=== PATIENT | female | born 1995 | race African-American/Black ===

== ENCOUNTER 2017-06-08 10:34 | Emergency (ER) | payer BC, MEDICAID, OTHER ==
[2017-06-08 10:44] VITALS: BP 122/71
--- NOTE | 2017-06-08 11:39 | ER Document Report ---
ED Extremity Problem, Lower - General Chief Complaint: Leg Swelling Stated Complaint: LEG SWELLING RAPID HEART RATE Time Seen by Provider: 06/08/17 10:56 Mode of Arrival: Ambulatory Information source: Patient Notes: 22-year-old female presents to ED for complaint of arms and leg swelling 2 weeks. She states she has knee pain in the fast heartbeat. Her heartbeat was normal during her stay in the emergency room. She states that she was losing a lot of weight and her legs were very swollen before her loss of weight and they were slowly getting better. She states over the last 2 weeks her legs started swelling again but she is continuing to lose weight. She states she has a appointment with a neurologist for some shaking in her head. She states she has another appointment with her primary doctor concerning her swelling in her leg also. TRAVEL OUTSIDE OF THE [place] IN LAST 30 DAYS: No - HPI Patient complains to provider of: Swelling Location: Leg, Thigh Occurred: Other - Intermittently over the last 2 weeks decreases when she has her legs elevated down when she is walking Onset/Duration: Intermittent Quality of pain: Pressure Severity: Mild Pain Level: 2 Recent injury: No Associated symptoms: Rapid heart rate Exacerbated by: Hanging down - States at times she feels like she has a fast heartbeat there is no fast heartbeat at this time, Walking Relieved by: Elevation - Related Data Allergies/Adverse Reactions: No Known Allergies Allergy (Verified 06/08/17 10:41) Past Medical History - General Information source: Patient - Social History Smoking Status: Never Smoker Cigarette use (# per day): No Chew tobacco use (# tins/day): No Smoking Education Provided: No Frequency of alcohol use: None Drug Abuse: None Lives with: Family Family History: Reviewed & Not Pertinent Patient has suicidal ideation: No Patient has homicidal ideation: No - Past Medical History Cardiac Medical History: Reports: None Pulmonary Medical History: Reports: Hx Asthma, Hx Bronchitis EENT Medical History: Reports: None Neurological Medical History: Reports: None Endocrine Medical History: Reports: None Renal/ Medical History: Reports: None Malignancy Medical History: Reports: None GI Medical History: Reports: None Musculoskeltal Medical History: Reports None Psychiatric Medical History: Reports: Hx Bipolar Disorder, Hx Depression, Hx Schizophrenia Traumatic Medical History: Reports: None Infectious Medical History: Reports: None Surgical Hx: Negative Past Surgical History: Reports: None - Immunizations Immunizations up to date: Yes Hx Diphtheria, Pertussis, Tetanus Vaccination: No Review of Systems - Review of Systems Constitutional: No symptoms reported EENT: No symptoms reported Cardiovascular: Edema - Lower legs Respiratory: No symptoms reported Gastrointestinal: No symptoms reported Genitourinary: No symptoms reported Female Genitourinary: No symptoms reported Musculoskeletal: No symptoms reported, Leg swelling Skin: No symptoms reported Hematologic/Lymphatic: No symptoms reported Neurological/Psychological: No symptoms reported -: Yes All other systems reviewed and negative Physical Exam - Vital signs Vitals: Temp Pulse Resp BP Pulse Ox 99.1 F 73 16 122/71 99 06/08/17 10:42 06/08/17 10:42 06/08/17 10:42 06/08/17 10:42 06/08/17 10:42 Interpretation: Normal - General General appearance: Appears well, Alert - HEENT Head: Normocephalic, Atraumatic Eyes: Normal Pupils: PERRL - Respiratory Respiratory status: No respiratory distress Chest status: Nontender Breath sounds: Normal Chest palpation: Normal - Cardiovascular Rhythm: Regular Heart sounds: Normal auscultation Murmur: No - Abdominal Inspection: Normal Distension: No distension Bowel sounds: Normal Tenderness: Nontender Organomegaly: No organomegaly - Back Back: Normal, Nontender - Extremities General upper extremity: Normal inspection, Nontender, Normal color, Normal ROM , Normal temperature General lower extremity: Normal inspection, Nontender, Normal color, Normal ROM , Normal temperature, Normal weight bearing. No: Ashley's sign Hand: Normal, Nontender Calf: Other - Minimal edema Ankle: Edema - Minimal Foot: Normal - Minimal - Neurological Neuro grossly intact: Yes Cognition: Normal Orientation: AAOx4 [place] Coma Scale Eye Opening: Spontaneous [place] Coma Scale Verbal: Oriented [place] Coma Scale Motor: Obeys Commands [place] Coma Scale Total: 15 Speech: Normal Motor strength normal: LUE, RUE, LLE, RLE Sensory: Normal - Psychological Associated symptoms: Normal affect, Normal mood - Skin Skin Temperature: Warm Skin Moisture: Dry Skin Color: Normal Course - Re-evaluation Re-evalutation: 06/08/17 11:46 Patient encouraged to increase her p.o. fluid and to follow-up with her primary doctor to have reevaluated her pedal edema. Patient is losing weight stands on her feet all day and has swelling in her feet and ankles at the end of the day. Patient instructed this was normal for standing on your feet all the time that she would need to get further evaluated by her primary doctor if this continues. There was no noticeable pedal edema at this time. - Vital Signs Vital signs: Temp Pulse Resp BP Pulse Ox 99.1 F 73 16 122/71 99 06/08/17 10:42 06/08/17 10:42 06/08/17 10:42 06/08/17 10:42 06/08/17 10:42 Discharge - Discharge Clinical Impression: Bilateral leg edema Condition: Stable Disposition: HOME, SELF-CARE Additional Instructions: Patient was seen today for swelling to both legs 2 weeks. She states she has been losing weight and the leg edema had decreased a lot but then over the last couple days she has noticed that the swelling has started again. She states that the edema was much worse before she started losing the weight. She states she has cut it all drinks and is he drinking about bottles of water a day. Edema, Peripheral You have swelling in your legs. This is called peripheral edema. It can be caused by "leaky capillaries," inflammation, disease of the leg veins, or excess salt and water in your body. Edema may be a sign of heart, kidney, or liver disease. A medical evaluation can determine if there is a serious underlying cause for your edema. Avoid prolonged standing. If you must sit for a long time, occasionally get up and walk around or elevate your legs. Support stockings can be helpful in limiting swelling. Often diuretic or water pills are used to remove excess salt and water from your body. Call the doctor or return if you develop increased swelling, pain, or redness, shortness of breath, chest pain, or any other significant change. FOLLOW-UP CARE: If you have been referred to a physician for follow-up care, call the physician s office for an appointment as you were instructed or within the next two days. If you experience worsening or a significant change in your symptoms, notify the physician immediately or return to the Emergency Department at any time for re-evaluation. Referrals: SHANNON GROVE DO [NO LOCAL MD] - Follow up as needed
== END 2017-06-08 11:44 | disposition home or self-care (01) ==
LOC: ER 10:34
DX: R60.0 Localized edema (principal); R63.4 Abnormal weight loss; Z68.41 Body mass index [BMI] 40.0-44.9, adult; J45.909 Unspecified asthma, uncomplicated
CPT/HCPCS: 99283

== ENCOUNTER 2018-05-21 15:10 | Emergency (ER) | payer SELFPAY ==
--- NOTE | 2018-05-21 17:20 | RADIOLOGY REPORT (SQ) ---
EXAM DESCRIPTION: CHEST 2 VIEWS COMPLETED DATE/TIME: 05/21/2018 5:12 pm REASON FOR STUDY: [facility] COMPARISON: 04/17/2013 EXAM PARAMETERS: NUMBER OF VIEWS: two views TECHNIQUE: Digital Frontal and Lateral radiographic views of the chest acquired. RADIATION DOSE: NA LIMITATIONS: none FINDINGS: LUNGS AND PLEURA: No opacities, masses or pneumothorax. No pleural effusion. MEDIASTINUM AND HILAR STRUCTURES: No masses or contour abnormalities. HEART AND VASCULAR STRUCTURES: Heart normal size. No evidence for failure. BONES: No acute findings. HARDWARE: None in the chest. OTHER: No other significant finding. IMPRESSION: NO ACUTE RADIOGRAPHIC FINDING IN THE CHEST. TECHNICAL DOCUMENTATION: JOB ID: [id number] [employer]- All Rights Reserved Reading location - IP/workstation name: [email or web address]
--- NOTE | 2018-05-21 18:20 | ER Document Report ---
ED General - General Chief Complaint: Chest Pain Stated Complaint: CHEST PAIN Time Seen by Provider: 05/21/18 16:50 TRAVEL OUTSIDE OF THE [place] IN LAST 30 DAYS: No - HPI Patient complains to provider of: Chest pain rash Notes: Patient coming in for evaluation of chest pain states ongoing for the last 24- 72 hours. Patient states middle of her chest reproduced with movement and taking a deep breath. Denies any recent travel trauma. Patient also concerned about a rash that is on her lower extremities and on her hands. Patient states she is currently treating her pets at home for fleas. Possibility of fleabites. Patient otherwise has no other complaints denies any recent antibiotics is resting comfortably upon my evaluation nontoxic. - Related Data Allergies/Adverse Reactions: No Known Allergies Allergy (Verified 05/21/18 15:11) Past Medical History - Social History Smoking Status: Unknown if Ever Smoked Chew tobacco use (# tins/day): No Frequency of alcohol use: None Drug Abuse: None Family History: Reviewed & Not Pertinent Patient has suicidal ideation: No Patient has homicidal ideation: No - Past Medical History Cardiac Medical History: Comment Only: Hx Hypertension - LOW BLOOD PRESSURE Pulmonary Medical History: Reports: Hx Asthma, Hx Bronchitis Renal/ Medical History: Denies: Hx Peritoneal Dialysis Psychiatric Medical History: Reports: Hx Bipolar Disorder, Hx Depression, Hx Schizophrenia - Immunizations Immunizations up to date: Yes Hx Diphtheria, Pertussis, Tetanus Vaccination: No Review of Systems - Review of Systems Constitutional: No symptoms reported EENT: No symptoms reported Cardiovascular: Chest pain Respiratory: No symptoms reported Gastrointestinal: No symptoms reported Genitourinary: No symptoms reported Female Genitourinary: No symptoms reported Musculoskeletal: No symptoms reported Skin: Rash Hematologic/Lymphatic: No symptoms reported Neurological/Psychological: No symptoms reported -: Yes All other systems reviewed and negative Physical Exam - Vital signs Vitals: Temp Pulse Resp BP Pulse Ox 98.4 F 86 18 125/73 99 05/21/18 15:28 05/21/18 15:28 05/21/18 15:28 05/21/18 15:28 05/21/18 15:28 Interpretation: Normal - General General appearance: Appears well, Alert - HEENT Head: Normocephalic, Atraumatic Eyes: Normal Pupils: PERRL - Respiratory Respiratory status: No respiratory distress Chest status: Tender - Tenderness palpation of the sternum of the chest does reproduce patient's pain Breath sounds: Normal Chest palpation: Normal - Cardiovascular Rhythm: Regular Heart sounds: Normal auscultation Murmur: No - Abdominal Inspection: Normal Distension: No distension Bowel sounds: Normal Tenderness: Nontender Organomegaly: No organomegaly - Back Back: Normal, Nontender - Extremities General upper extremity: Normal inspection, Nontender, Normal color, Normal ROM , Normal temperature General lower extremity: Normal inspection, Nontender, Normal color, Normal ROM , Normal temperature, Normal weight bearing. No: Ashley's sign - Neurological Neuro grossly intact: Yes Cognition: Normal Orientation: AAOx4 [place] Coma Scale Eye Opening: Spontaneous [place] Coma Scale Verbal: Oriented [place] Coma Scale Motor: Obeys Commands [place] Coma Scale Total: 15 Speech: Normal Motor strength normal: LUE, RUE, LLE, RLE Sensory: Normal - Psychological Associated symptoms: Normal affect, Normal mood - Skin Skin Temperature: Warm Skin Moisture: Dry Skin Color: Other - Small insect bites on the lower extremities feet consistent possibly with flea bites Course - Re-evaluation Re-evalutation: 05/21/18 20:39 The patient has atypical chest pain as the patient's chest pain is not suggestive of pulmonary embolus, cardiac ischemia, aortic dissection, or other serious etiology. Given the extremely low risk of these diagnoses further testing and evaluation for these possibilities does not appear to be indicated at this time. The patient has been instructed to return if the symptoms worsen or change in any way. Bite price are consistent with flea bites more likely with the patient's HPI chest pain is more likely chest wall pain normal EKG normal chest x-ray. Patient will be discharged on follow-up primary care physician. Anti-inflammatory medication was provided to the patient for pain control. - Vital Signs Vital signs: Temp Pulse Resp BP Pulse Ox 98.4 F 72 20 107/65 100 05/21/18 18:19 05/21/18 18:19 05/21/18 18:19 05/21/18 18:19 05/21/18 18:19 Discharge - Discharge Clinical Impression: Chest wall pain Flea bite Qualifiers: Encounter type: initial encounter Qualified Code(s): W57.XXXA - Bitten or stung by nonvenomous insect and other nonvenomous arthropods, initial encounter Disposition: HOME, SELF-CARE Instructions: Chest Wall Pain ([facility]), Insect Bites ([facility]) Additional Instructions: Your evaluation is consistent with chest wall pain I recommend taking medication as prescribed return to ER symptoms worsen Prescriptions: Ibuprofen [Motrin 600 mg Tablet] 600 mg PO Q8HP PRN #21 tablet PRN Reason: Referrals: SHANNON GROVE DO [NO LOCAL MD] - Follow up as needed
[2018-05-21 18:22] VITALS: BP 107/65
--- NOTE | 2018-05-21 21:52 | EKG REPORT ---
SEVERITY:- NORMAL ECG - SINUS RHYTHM : Confirmed by: Lilia Wilks MD 21-May-2018 21:51:41
== END 2018-05-21 18:21 | disposition home or self-care (01) ==
LOC: ER 15:10
DX: R07.89 Other chest pain (principal); R21 Rash and other nonspecific skin eruption; W57.XXXA Bitten or stung by nonvenomous insect and other nonvenomous arthropods, initial encounter
CPT/HCPCS: 71046; 93005; 93010; 99285

== ENCOUNTER 2018-05-22 22:27 | Emergency (ER) | payer SELFPAY ==
[2018-05-23] MEDS ORDERED: LIDOCAINE 5% (700 MG) TRANSDERMAL ADH..PATCH TP ONE (02:35)
[2018-05-23] MEDS ORDERED: KETOROLAC TROMETHAMINE 60 MG/2 ML SDV IM ONE (02:35)
--- NOTE | 2018-05-23 02:54 | ER Document Report ---
ED General - General Chief Complaint: Chest Pain Stated Complaint: POSSIBLE RASH Time Seen by Provider: 05/23/18 02:08 TRAVEL OUTSIDE OF THE [place] IN LAST 30 DAYS: No - HPI Notes: Patient is a 23-year-old female with no significant past medical history who presents to the ED complaining of midsternal chest pain that is been ongoing for the last 3-4 days. Patient states that she was evaluated yesterday and had an unremarkable workup and exam at that time which included an EKG and chest x- ray. Patient states that her pain is the exact same and has not changed. Patient states that the pain does not radiate. Patient states that the pain is worse with movement and pushing in that area. Denies any drug allergies. She had been eating and drinking without any difficulties or worsening symptoms. She is urinating a normal bowel movements. Patient states that she does have some insect bites to her legs which are not painful. No other concerns or complaints. Denies any drug allergies, smoking, IV drug use. Denies any headache, fever, neck pain, URI, sore throat, palpitations, syncope, cough, shortness of breath, wheeze, dyspnea, abdominal pain, nausea/vomiting/diarrhea, urinary retention, dysuria, hematuria, back pain, loss of control of bowel or bladder, numbness/tingling, saddle anesthesia, muscle paralysis/weakness. - Related Data Allergies/Adverse Reactions: No Known Allergies Allergy (Verified 05/21/18 15:11) Past Medical History - Social History Smoking Status: Never Smoker Family History: Reviewed & Not Pertinent - Past Medical History Cardiac Medical History: Comment Only: Hx Hypertension - LOW BLOOD PRESSURE Pulmonary Medical History: Reports: Hx Asthma, Hx Bronchitis Renal/ Medical History: Denies: Hx Peritoneal Dialysis Psychiatric Medical History: Reports: Hx Bipolar Disorder, Hx Depression, Hx Schizophrenia - Immunizations Immunizations up to date: Yes Hx Diphtheria, Pertussis, Tetanus Vaccination: No Review of Systems - Review of Systems -: Yes All other systems reviewed and negative Physical Exam - Vital signs Vitals: Temp Pulse Resp BP Pulse Ox 98.7 F 81 18 112/70 100 05/22/18 22:53 05/22/18 22:53 05/22/18 22:53 05/22/18 22:53 05/22/18 22:53 - Notes Notes: PHYSICAL EXAMINATION: GENERAL: Well-appearing, well-nourished and in no acute distress. HEAD: Atraumatic, normocephalic. EYES: Pupils equal round and reactive to light, extraocular movements intact, sclera anicteric, conjunctiva are normal. ENT: Nares patent and without discharge. oropharynx clear without exudates. No tonsilar hypertrophy or erythema. Moist mucous membranes. NECK: Normal range of motion, supple without lymphadenopathy Chest: + reproducible tenderness to palpation of the sternal area and reproducible with arm extension/abduction. LUNGS: Breath sounds clear to auscultation bilaterally and equal. No wheezes rales or rhonchi. HEART: Regular rate and rhythm without murmurs, rubs, gallops. ABDOMEN: Soft, nontender, nondistended abdomen. No guarding, no rebound. No masses appreciated. Normal bowel sounds present. No CVA tenderness bilaterally. Musculoskeletal: FROM to passive/active. Strength 5+/5. Ashley neg. No asymmetry to LE's. Extremities: No cyanosis, clubbing, or edema b/l. Peripheral pulses 2+. Capillary refill less than 3 seconds. NEUROLOGICAL: Normal speech, normal gait. PSYCH: Normal mood, normal affect. SKIN: insect bites, non-infected LE's b/l. No significant erythema, induration , fluctuance, streaks, purulence, or abscess. Course - Re-evaluation Re-evalutation: 05/23/18 04:38 Patient is an afebrile, well-hydrated 23-year-old female who presents to the ED with chest wall pain. Vitals are acceptable without any significant tachycardia , tachypnea, or hypoxia. PE is otherwise unremarkable aside from the reproducible sternal chest wall tenderness. Patient is nontoxic-appearing and is tolerating p.o. without any difficulties. Pt is currently asymptomatic. CBC , CMP, EKG/cardiac enzyme, chest x-ray are all unremarkable for any acute pathology. Patient has a heart score of 0, Wells score of 0, and is PERC negative. Toradol and lidoderm patch given today. Patient does not have any dyspnea or shortness of breath. She had a negative evaluation yesterday as well. Patient's presentation and symptomatology creates low suspicion for ACS, PE, pneumothorax, pericarditis, dissection, respiratory compromise, severe dehydration, sepsis, meningitis, or other systemic emergent condition at this time. Patient is aware that this condition can change from initial presentation and she needs to monitor symptoms closely and seek medical attention for any acute changes. Pt is feeling better and would like to go home. Rx for naproxen. Recommend conservative measures for symptoms. Recheck with your PCM in 3-5 days. Consider consult with Cardiology. Return to the ED with any worsening/concerning symptoms otherwise as reviewed in discharge. Patient is in agreement. - Vital Signs Vital signs: Temp Pulse Resp BP Pulse Ox 98.7 F 81 18 99/69 L 100 05/22/18 22:53 05/22/18 22:53 05/23/18 04:01 05/23/18 04:01 05/23/18 04:01 - Laboratory Result Diagrams: 05/23/18 03:35 05/23/18 03:35 Laboratory results interpreted by me: 05/23/18 03:35 Hgb 11.5 L Hct 34.5 L RDW 16.1 H Seg Neutrophils % 40.1 L Lymphocytes % 47.9 H Discharge - Discharge Clinical Impression: Chest wall pain Condition: Stable Disposition: HOME, SELF-CARE Instructions: Chest Wall Pain ([facility]) Additional Instructions: Maintain adequate fluid and food intake Take home medications as directed Low sodium/fat diet Exercise regularly Tylenol/Motrin as needed Cool and warm compresses may help Monitor blood pressure daily and keep a log Monitor symptoms for any acute changes Recheck with your PCM in 3-5 days Consider a follow-up with cardiology Return to the ED with any worsening symptoms and/or development of fever, headache, chest pain, palpitations, syncope, shortness of breath, trouble breathing, abdominal pain, n/v/d, blood in stool/urine, loss of control of bowel /bladder, urinary retention, muscle weakness/paralysis, numbness/tingling, or other worsening symptoms that are concerning to you. Prescriptions: Naproxen 500 mg PO BID PRN #30 tablet PRN Reason: Referrals: [facility] [Provider Group] - Follow up as needed [facility] [Provider Group] - Follow up as needed
--- NOTE | 2018-05-23 03:15 | RADIOLOGY REPORT (SQ) ---
EXAM DESCRIPTION: XR CHEST 1 VIEW COMPLETED DATE/TME: 05/23/2018 02:35 CLINICAL HISTORY: 23 years Female, chest pain COMPARISON: 9.24.18 NUMBER OF VIEWS/TECHNIQUE: 1/AP FINDINGS: Adequate lung volume, clear parenchyma, normal cardiac silhouette, and intact bony thorax. IMPRESSION: No acute cardiopulmonary findings.
[2018-05-23 03:52] LABS: ABSOLUTE BASOPHILS # (AUTO) 0.1 10^3/uL (0.0-0.2); ABSOLUTE EOSINOPHILS # (AUTO) 0.1 10^3/uL (0.0-0.6); ABSOLUTE LYMPHOCYTES (AUTO) 3.8 10^3/uL (0.5-4.7); ABSOLUTE MONOCYTES (AUTO) 0.8 10^3/uL (0.1-1.4); ABSOLUTE NEUT (AUTO) 3.2 10^3/uL (1.7-8.2); BASOPHILS % (AUTO) 1.1 % (0-2); EOSINOPHILS % (AUTO) 1.1 % (0-6); HEMATOCRIT 34.5 % (36.0-47.0); HEMOGLOBIN 11.5 g/dL (12.0-15.5); LYMPHOCYTES % (AUTO) 47.9 % (13-45); MEAN CORPUSCULAR HEMOGLOBIN 27.4 pg (27.0-33.4); MEAN CORPUSCULAR HGB CONC 33.3 g/dL (32.0-36.0); MEAN CORPUSCULAR VOLUME 82 fl (80-97); MONOCYTES % (AUTO) 9.8 % (3-13); PLATELET COUNT 350 10^3/uL (150-450); RED CELL DISTRIBUTION WIDTH 16.1 % (11.5-14.0); SEGMENTED NEUTROPHILS % (AUTO) 40.1 % (42-78); TOTAL CELLS COUNTED % (AUTO) 100 %
[2018-05-23 04:09] LABS: ALANINE AMINOTRANSFERASE 22 U/L (9-52); ALKALINE PHOSPHATASE 57 U/L (38-126); ANION GAP 9 (5-19); ASPARTATE AMINO TRANSFERASE 17 U/L (14-36); BILIRUBIN,DIRECT 0.2 mg/dL (0.0-0.4); BILIRUBIN,TOTAL 0.4 mg/dL (0.2-1.3); BLOOD UREA NITROGEN 17 mg/dL (7-20); CALCIUM 9.6 mg/dL (8.4-10.2); CARBON DIOXIDE 24 mmol/L (22-30); CHLORIDE 106 mmol/L (98-107); GLUCOSE 82 mg/dL (75-110); POTASSIUM 4.3 mmol/L (3.6-5.0); SODIUM 138.5 mmol/L (137-145); TOTAL PROTEIN 7.2 g/dL (6.3-8.2)
[2018-05-23 05:09] VITALS: BP 103/62
--- NOTE | 2018-05-23 07:55 | EKG REPORT ---
SEVERITY:- NORMAL ECG - SINUS RHYTHM : Confirmed by: Lilia Wilks MD 23-May-2018 07:54:59
== END 2018-05-23 05:20 | disposition home or self-care (01) ==
LOC: ER 22:27
DX: R07.89 Other chest pain (principal); S80.862A Insect bite (nonvenomous), left lower leg, initial encounter; S80.861A Insect bite (nonvenomous), right lower leg, initial encounter; W57.XXXA Bitten or stung by nonvenomous insect and other nonvenomous arthropods, initial encounter; J45.909 Unspecified asthma, uncomplicated
CPT/HCPCS: 93005; 99285; 96372; 36415; 85025; 80053; 84484; 71045; 93010; J1885

== ENCOUNTER 2018-07-22 13:28 | Emergency (ER) | payer SELFPAY ==
[2018-07-22 13:39] VITALS: BP 115/72
--- NOTE | 2018-07-22 13:55 | ER Document Report ---
ED Medical Screen (RME) - General TRAVEL OUTSIDE OF THE [place] IN LAST 30 DAYS: No <CHANNING ISLAS - Last Filed: 07/22/18 14:07> <JIM MAR - Last Filed: 07/22/18 14:21> - General Chief Complaint: Sore Throat Stated Complaint: SORE THROAT/FEVER Time Seen by Provider: 07/22/18 13:49 Notes: 23-year-old female who presents to the emergency department today with complaints of a sore throat which began yesterday. Patient states she has had associated fevers at home, shortness of breath, and postnasal drainage. Patient states it hurts when she swallows, but she is able to swallow. Patient denies a cough. I have greeted and performed a rapid initial assessment of this patient. A comprehensive ED assessment and evaluation of the patient, analysis of test results, and completion of the medical decision making process will be conducted by additional ED providers. Review of systems: Constitutional: Fevers at home. EENT: Throat pain. Post nasal drainage. Denies: difficulty swallowing Cardiovascular: No symptoms reported Respiratory: Shortness of breath. Denies: Cough Gastrointestinal: No symptoms reported Genitourinary: No symptoms reported Musculoskeletal: No symptoms reported Skin: No symptoms reported Hematologic/Lymphatic: No symptoms reported Neurological/Psychological: No symptoms reported Yes All other systems reviewed and negative PHYSICAL EXAM GENERAL: Alert, interacts well. No acute distress. HEAD: Normocephalic, atraumatic. EYES: Pupils equal, round, and reactive to light. Extraocular movements intact. ENT: Oral mucosa moist, tongue midline. Nares patent, no nasal septal hematoma, TM's intact. Non-symmetric tonsils, right-sided tonsillar hypertrophy with right sided peritonsillar swelling. Cobblestoning of posterior oropharynx. Mild clear rhinorrhea anteriorly. NECK: Full range of motion. Supple. Trachea midline. LUNGS: Clear to auscultation bilaterally, no wheezes, rales, or rhonchi. No respiratory distress. HEART: Regular rate and rhythm. No murmurs, gallops, or rubs. EXTREMITIES: Moves all 4 extremities spontaneously. NEUROLOGICAL: Alert and oriented x3. Normal speech. PSYCH: Normal affect, normal mood. SKIN: Warm, dry, normal turgor. No rashes or lesions noted. (CHANNING ISLAS) - Related Data Allergies/Adverse Reactions: No Known Allergies Allergy (Verified 05/21/18 15:11) Past Medical History - Social History Chew tobacco use (# tins/day): No Frequency of alcohol use: None Drug Abuse: None - Past Medical History Cardiac Medical History: Comment Only: Hx Hypertension - LOW BLOOD PRESSURE Pulmonary Medical History: Reports: Hx Asthma, Hx Bronchitis Renal/ Medical History: Denies: Hx Peritoneal Dialysis Psychiatric Medical History: Reports: Hx Bipolar Disorder, Hx Depression, Hx Schizophrenia - Immunizations Immunizations up to date: Yes Hx Diphtheria, Pertussis, Tetanus Vaccination: No <CHANNING ISLAS - Last Filed: 07/22/18 14:07> - Vital signs Vitals: Temp Pulse Resp BP Pulse Ox 99.4 F 94 18 115/72 97 07/22/18 13:38 07/22/18 13:38 07/22/18 13:38 07/22/18 13:38 07/22/18 13:38 Course - Laboratory Result Diagrams: 07/22/18 14:09 07/22/18 14:09 <JIM MAR - Last Filed: 07/22/18 14:21> - Vital Signs Vital signs: Temp Pulse Resp BP Pulse Ox 99.4 F 94 18 115/72 97 07/22/18 13:38 07/22/18 13:38 07/22/18 13:38 07/22/18 13:38 07/22/18 13:38 Scribe Documentation - Scribe Written by Scribe:: Godfrey Still, 07/22/2018 1405 acting as scribe for :: Blessing <CHANNING ISLAS - Last Filed: 07/22/18 14:07>
[2018-07-22] MEDS ORDERED: DEXAMETHASONE SOD PHOS INJ 10 MG/1 ML VIAL IV ONE (13:56)
[2018-07-22] MEDS ORDERED: KETOROLAC TROMETHAMINE INJ/PF 30 MG/1 ML SDV IV ONE (13:56)
--- NOTE | 2018-07-22 14:16 | ER Document Report ---
ED ENT - General Chief Complaint: Sore Throat Stated Complaint: SORE THROAT/FEVER Time Seen by Provider: 07/22/18 13:49 TRAVEL OUTSIDE OF THE [place] IN LAST 30 DAYS: No - HPI Notes: Patient is a 23-year-old female that presents to the emergency department for chief complaint of sore throat. Patient reports 2 days of sore throat and fevers. She states her right side is more painful than the left. She reports a sharp pain that is worse with swallowing and eating. She states she is still able to eat and drink but it is painful. She has had minimal improvement at home with ibuprofen. Her last dose of ibuprofen was at 8 PM. She denies any sick contacts. She denies any cough, congestion, nausea, vomiting, shortness of breath and chest pain. Past Medical History: Negative Past Surgical History: Negative Social History: Denies drugs alcohol and tobacco Family History: Reviewed and noncontributory for presenting illness Allergies: Reviewed, see documented allergy list. REVIEW OF SYSTEMS: CONSTITUTIONAL : fever No chills No diaphoresis No recent illness EENT: No vision changes No congestion sore throat CARDIOVASCULAR: No chest pain No palpitations RESPIRATORY: No shortness of breath No cough No difficulty breathing GASTROINTESTINAL: No abdominal pain No nausea No vomiting No diarrhea GENITOURINARY: No dysuria No hematuria No difficulty urinating MUSCULOSKELETAL: No back pain No leg pain No arm pain SKIN: No rashes No lesions LYMPHATIC: No swollen, enlarged glands. NEUROLOGICAL: No lightheadedness No headache No weakness No paresthesias PSYCHIATRIC: No anxiety No depression PHYSICAL EXAMINATION: Vital signs reviewed, nursing noted reviewed. GENERAL: Well-appearing, well-nourished and in no acute distress. HEAD: Atraumatic, normocephalic. EYES: Eyes appear normal, extraocular movements intact, sclera anicteric, conjunctiva are normal. ENT: Bilateral tonsillar edema right greater than left. Uvula midline. No tonsillar exudates or erythema. nares patent. Moist mucous membranes. NECK: Normal range of motion, supple without anterior chain adenopathy, tenderness to palpation of right anterior chain. No edema. LUNGS: Breath sounds clear to auscultation bilaterally and equal. No wheezes rales or rhonchi. HEART: Regular rate and rhythm without murmurs ABDOMEN: Soft, nontender, normoactive bowel sounds. No rebound, guarding, or rigidity. No masses appreciated. EXTREMITIES: Nontender, good range of motion, no pitting or edema. NEUROLOGICAL: No focal neurological deficits. Moves all extremities spontaneously Motor and sensory grossly intact on exam. PSYCH: Normal mood, normal affect. SKIN: Warm, Dry, normal turgor, no rashes or lesions noted on exposed skin - Related Data Allergies/Adverse Reactions: No Known Allergies Allergy (Verified 05/21/18 15:11) Past Medical History - Social History Smoking Status: Never Smoker Chew tobacco use (# tins/day): No Frequency of alcohol use: None Drug Abuse: None Family History: Reviewed & Not Pertinent Patient has suicidal ideation: No Patient has homicidal ideation: No - Past Medical History Cardiac Medical History: Comment Only: Hx Hypertension - LOW BLOOD PRESSURE Pulmonary Medical History: Reports: Hx Asthma, Hx Bronchitis Renal/ Medical History: Denies: Hx Peritoneal Dialysis Psychiatric Medical History: Reports: Hx Bipolar Disorder, Hx Depression, Hx Schizophrenia - Immunizations Immunizations up to date: Yes Hx Diphtheria, Pertussis, Tetanus Vaccination: No Physical Exam - Vital signs Vitals: Temp Pulse Resp BP Pulse Ox 99.4 F 94 18 115/72 97 07/22/18 13:38 07/22/18 13:38 07/22/18 13:38 07/22/18 13:38 07/22/18 13:38 Course - Re-evaluation Re-evalutation: 07/22/18 14:15 Vitals reviewed. Nursing notes reviewed. Patient given Decadron and Toradol for symptomatic management. Her right tonsil is larger than the left and is causing her increased pain and tenderness, CT will be obtained to evaluate for peritonsillar abscess. 07/22/18 15:48 Patient reevaluated and is still hemodynamically stable. Shows no peritonsillar or retropharyngeal abscess. Her lab work shows a leukocytosis which is related to her acute strep pharyngitis. Patient will be treated with IM Bicillin. She received she will follow with her primary care doctor for reevaluation in the next few days. She will continue using Tylenol or ibuprofen at home as needed for fevers. Discharged home in stable condition. - Vital Signs Vital signs: Temp Pulse Resp BP Pulse Ox 99.4 F 94 18 115/72 97 07/22/18 13:38 07/22/18 13:38 07/22/18 13:38 07/22/18 13:38 07/22/18 13:38 - Laboratory Result Diagrams: 07/22/18 14:09 07/22/18 14:09 Laboratory results interpreted by me: 07/22/18 14:09 WBC 17.6 H Hgb 11.5 L Hct 34.7 L MCH 26.6 L RDW 16.7 H Seg Neutrophils % 78.4 H Lymphocytes % 12.5 L Absolute Neutrophils 13.8 H Discharge - Discharge Clinical Impression: Strep throat Condition: Stable Disposition: HOME, SELF-CARE Instructions: Strep Throat ([facility]) Additional Instructions: Please return to the emergency department if you have any worsening, or concern of your symptoms. Please return to the emergency department if you develop chest pain, difficulty breathing, severe abdominal pain, or ongoing vomiting. Please follow-up with your primary care physician in 2-3 days and any other recommended physicians. If prescribed, take all medications as directed. If you have any questions or concerns do not hesitate to return the emergency department for evaluation. [] Prescriptions: Ibuprofen [Ibu] 600 mg PO Q6 PRN #30 tablet PRN Reason: Pain Referrals: [facility] [Provider Group] - Follow up in 3-5 days
[2018-07-22 14:23] LABS: ABSOLUTE BASOPHILS # (AUTO) 0.1 10^3/uL (0.0-0.2); ABSOLUTE LYMPHOCYTES (AUTO) 2.2 10^3/uL (0.5-4.7); ABSOLUTE MONOCYTES (AUTO) 1.4 10^3/uL (0.1-1.4); ABSOLUTE NEUT (AUTO) 13.8 10^3/uL (1.7-8.2); BASOPHILS % (AUTO) 0.8 % (0-2); EOSINOPHILS % (AUTO) 0.3 % (0-6); HEMATOCRIT 34.7 % (36.0-47.0); HEMOGLOBIN 11.5 g/dL (12.0-15.5); LYMPHOCYTES % (AUTO) 12.5 % (13-45); MEAN CORPUSCULAR HEMOGLOBIN 26.6 pg (27.0-33.4); MEAN CORPUSCULAR HGB CONC 33.2 g/dL (32.0-36.0); MEAN CORPUSCULAR VOLUME 80 fl (80-97); PLATELET COUNT 374 10^3/uL (150-450); RED BLOOD COUNT 4.34 10^6/uL (3.72-5.28); RED CELL DISTRIBUTION WIDTH 16.7 % (11.5-14.0); SEGMENTED NEUTROPHILS % (AUTO) 78.4 % (42-78); TOTAL CELLS COUNTED % (AUTO) 100 %; WHITE BLOOD COUNT 17.6 10^3/uL (4.0-10.5)
[2018-07-22 14:41] LABS: ANION GAP 11 (5-19); BLOOD UREA NITROGEN 12 mg/dL (7-20); CALCIUM 9.4 mg/dL (8.4-10.2); CARBON DIOXIDE 24 mmol/L (22-30); CHLORIDE 106 mmol/L (98-107); GLUCOSE 96 mg/dL (75-110); POTASSIUM 4.4 mmol/L (3.6-5.0); SODIUM 140.7 mmol/L (137-145)
--- NOTE | 2018-07-22 15:45 | RADIOLOGY REPORT (SQ) ---
EXAM DESCRIPTION: CT SOFT TISSUE NECK WITH COMPLETED DATE/TIME: 07/22/2018 2:55 pm REASON FOR STUDY: R peritonsillar swelling, r/o [employer] COMPARISON: None. TECHNIQUE: Post IV contrasted scanning from skull base through lung apices with review of bone, soft tissue and lung windows. Reconstructed coronal and sagittal MPR images reviewed. All images stored on PACS. All CT scanners at this facility use dose modulation, iterative reconstruction, and/or weight based d osing when appropriate to reduce radiation dose to as low as reasonably achievable (ALARA). [facility]: Dose Right [facility]: CareDose [facility]: Dose Right [facility]: Teradose 4D [facility]: [employer] CONTRAST TYPE AND DOSE: contrast/concentration: Isovue 370.00 mg/ml; Total Contrast Delivered: 75.0 ml; Total Saline Delivered: 55.0 ml RENAL FUNCTION: None required. The patient is less than 50 years old. RADIATION DOSE: . LIMITATIONS: None. FINDINGS: SKULL BASE: Intact. MAJOR SALIVARY GLANDS: No solid or cystic masses. No inflammatory changes. LYMPHADENOPATHY: No adenopathy. MUCOSAL MASSES OR ASYMMETRY: General symmetric fullness of the right and left pharyngeal tonsils and of the adenoidal tissues. No evidence of peritonsillar abscess. LARYNX/CORDS: No abnormal findings. VASCULAR STRUCTURES: The major vessels are patent. LUNG APICES: Clear. BONES: Intact. THYROID: Normal size. No masses. PARANASAL SINUSES: Clear. OTHER: No other significant finding. IMPRESSION: SYMMETRIC FULLNESS OF THE RIGHT AND LEFT PHARYNGEAL TONSILS AND OF THE ADENOIDAL TISSUES . NO EVIDENCE OF PERITONSILLAR ABSCESS. NO OTHER SIGNIFICANT FINDING IN THE SOFT TISSUES OF THE NEC K. TECHNICAL DOCUMENTATION: JOB ID: [id number] Quality ID # [id number]: Final reports with documentation of one or more dose reduction techniques (e.g., Au tomated exposure control, adjustment of the mA and/or kV according to patient size, use of iterative reconstruction technique) 2010 [employer]- All Rights Reserved Reading location - IP/workstation name: [email or web address]
[2018-07-22] MEDS ORDERED: PENICILLIN G BENZATHINE 1.2 MILLION UNIT/2 ML DISP.SYRIN IM ONE (15:47)
== END 2018-07-22 16:15 | disposition home or self-care (01) ==
LOC: ER 13:28
DX: J02.0 Streptococcal pharyngitis (principal); R50.9 Fever, unspecified; I10 Essential (primary) hypertension; J45.909 Unspecified asthma, uncomplicated
CPT/HCPCS: 99283; 96372; 96374; 96375; 36415; 84703; 85025; 80048; 70491; J1885; J0561; J1100

== ENCOUNTER 2018-09-08 15:05 | Emergency (ER) | payer SELFPAY ==
--- NOTE | 2018-09-08 15:34 | ER Document Report ---
ED Medical Screen (RME) - General Chief Complaint: Vaginal Discharge Stated Complaint: VAGINAL DISCHARGE Time Seen by Provider: 09/08/18 15:30 Notes: 23-year-old female patient with a 2-3-day history of a yellowish cottage cheese type vaginal discharge. There is no pain or itching. She has not had this before, but has had a "vaginal infection" in the past. LMP 3 weeks ago. Only medication is lisinopril for high blood pressure. I have greeted and performed a rapid initial assessment of this patient. A comprehensive ED assessment and evaluation of the patient, analysis of test results and completion of the medical decision making process will be conducted by additional ED providers. TRAVEL OUTSIDE OF THE [place] IN LAST 30 DAYS: No - Related Data Allergies/Adverse Reactions: No Known Allergies Allergy (Verified 09/08/18 15:06) Past Medical History - Social History Chew tobacco use (# tins/day): No Frequency of alcohol use: None Drug Abuse: None - Past Medical History Cardiac Medical History: Comment Only: Hx Hypertension - LOW BLOOD PRESSURE Pulmonary Medical History: Reports: Hx Asthma, Hx Bronchitis Renal/ Medical History: Denies: Hx Peritoneal Dialysis Psychiatric Medical History: Reports: Hx Bipolar Disorder, Hx Depression, Hx Schizophrenia - Immunizations Immunizations up to date: Yes Hx Diphtheria, Pertussis, Tetanus Vaccination: No Physical Exam - Vital signs Vitals: Temp Pulse Resp BP Pulse Ox 98.4 F 89 18 125/77 100 09/08/18 15:09 09/08/18 15:09 09/08/18 15:09 09/08/18 15:09 09/08/18 15:09 Course - Vital Signs Vital signs: Temp Pulse Resp BP Pulse Ox 98.4 F 89 18 125/77 100 09/08/18 15:09 09/08/18 15:09 09/08/18 15:09 09/08/18 15:09 09/08/18 15:09
[2018-09-08 16:11] LABS: APPEARANCE,URINE CLOUDY; BILIRUBIN,URINE NEGATIVE (NEGATIVE); COLOR,URINE YELLOW; GLUCOSE, URINE NEGATIVE (NEGATIVE); KETONES,URINE NEGATIVE (NEGATIVE); LEUKOCYTE ESTERASE,URINE LARGE (NEGATIVE); NITRITE,URINE NEGATIVE (NEGATIVE); PROTEIN,URINE NEGATIVE (NEGATIVE); URINE SPECIFIC GRAVITY 1.009; UROBILINOGEN,URINE NEGATIVE mg/dL (<2.0)
--- NOTE | 2018-09-08 17:31 | ER Document Report ---
HPI - HPI Patient complains to provider of: Vaginal discharge Time Seen by Provider: 09/08/18 15:30 Onset: Yesterday Onset/Duration: Gradual Quality of pain: No pain Pain Level: Denies Context: Patient reports using a new soap recently and then noticed a yellow vaginal discharge yesterday. Patient denies any urinary symptoms at this time. Patient has not ever been sexually active Associated Symptoms: Other - Vaginal discharge. denies: Nonproductive cough, Fever, Nausea, Vomiting Exacerbated by: Denies Relieved by: Denies Similar symptoms previously: No Recently seen / treated by doctor: No - ROS ROS below otherwise negative: Yes Systems Reviewed and Negative: Yes All other systems reviewed and negative - CONSTITUTIONAL Constitutional: DENIES: Fever, Chills - NEURO Neurology: DENIES: Headache - GASTROINTESTINAL Gastrointestinal: DENIES: Abdominal Pain, Nausea - URINARY Urinary: DENIES: Dysuria - REPRODUCTIVE Reproductive: REPORTS: Abnormal bleeding / discharge. DENIES: : - MUSCULOSKELETAL Musculoskeletal: DENIES: Back Pain - DERM Skin Color: Normal Skin Problems: None Past Medical History - General Information source: Patient - Social History Smoking Status: Never Smoker Chew tobacco use (# tins/day): No Frequency of alcohol use: None Drug Abuse: None Occupation: [employer] Family History: Reviewed & Not Pertinent Patient has suicidal ideation: No Patient has homicidal ideation: No - Past Medical History Cardiac Medical History: Reports: Hx Hypertension Pulmonary Medical History: Reports: Hx Asthma, Hx Bronchitis Renal/ Medical History: Denies: Hx Peritoneal Dialysis Psychiatric Medical History: Reports: Hx Bipolar Disorder, Hx Depression, Hx Schizophrenia Surgical Hx: Negative - Immunizations Immunizations up to date: Yes Hx Diphtheria, Pertussis, Tetanus Vaccination: No Vertical Provider Document - CONSTITUTIONAL Agree With Documented VS: Yes Exam Limitations: No Limitations General Appearance: WD/WN, No Apparent Distress - INFECTION CONTROL TRAVEL OUTSIDE OF THE [place] IN LAST 30 DAYS: No - HEENT HEENT: Atraumatic, Normocephalic - NECK Neck: Normal Inspection - RESPIRATORY Respiratory: Breath Sounds Normal, No Respiratory Distress - CARDIOVASCULAR Cardiovascular: Regular Rate, Regular Rhythm - GI/ABDOMEN Gastrointestinal: Abdomen Soft, Abdomen Non-Tender, Normal Bowel Sounds - REPRODUCTIVE Notes: White adherent vaginal discharge to vaginal introitus - BACK Back: Normal Inspection - MUSCULOSKELETAL/EXTREMETIES Musculoskeletal/Extremeties: KARMEN VERA - NEURO Level of Consciousness: Awake, Alert, Appropriate Motor/Sensory: No Motor Deficit - DERM Integumentary: Warm, Dry, No Rash Course - Vital Signs Vital signs: Temp Pulse Resp BP Pulse Ox 98.4 F 89 18 125/77 100 09/08/18 15:09 09/08/18 15:09 09/08/18 15:09 09/08/18 15:09 09/08/18 15:09 - Laboratory Laboratory results interpreted by me: 09/08/18 15:40 Ur Leukocyte Esterase LARGE H Discharge - Discharge Clinical Impression: Vagina, candidiasis, Bacterial vaginosis UTI (urinary tract infection) Qualifiers: Urinary tract infection type: site unspecified Hematuria presence: without hematuria Qualified Code(s): N39.0 - Urinary tract infection, site not specified Condition: Stable Disposition: HOME, SELF-CARE Instructions: Cephalexin ([facility]), Metronidazole ([facility]), Urinary Tract Infection ([facility]), Vaginal Yeast Infection ([facility]), Vaginosis, Bacterial ([facility]) Additional Instructions: Return immediately for any new or worsening symptoms Followup with your primary care provider, call tomorrow to make a followup appointment Prescriptions: Cephalexin Monohydrate [Keflex 500 mg Capsule] 500 mg PO BID 5 Days capsule Metronidazole [Flagyl 500 mg Tablet] 500 mg PO BID #14 tablet Forms: Return to Work Referrals: SHANNON GROVE DO [NO LOCAL MD] - Follow up as needed
[2018-09-08 17:35] LABS: BACTERIA (WET MOUNT) 4+ BACTERIA SEEN; EPITHELIALS (WET MOUNT) 3+ EPITHELIALS SEEN; RBCS (WET MOUNT) RARE RBCS SEEN; T.VAGINALIS (WET MOUNT) NO TRICHOMONAS SEEN; WBCS (WET MOUNT) 3+ WBCS SEEN; YEAST (WET MOUNT) YEAST SEEN
[2018-09-08 17:38] LABS: CHLAM PCR NOT DETECTED (NOT DETECT); GON PCR NOT DETECTED (NOT DETECT)
[2018-09-08] MEDS ORDERED: FLUCONAZOLE 100 MG TABLET PO ONE (17:46)
[2018-09-08] MEDS ORDERED: METRONIDAZOLE 500 MG TABLET PO ONE (17:46)
[2018-09-08 18:38] VITALS: BP 115/72
== END 2018-09-08 18:38 | disposition home or self-care (01) ==
LOC: ER 15:05
DX: N76.0 Acute vaginitis (principal); B96.89 Other specified bacterial agents as the cause of diseases classified elsewhere; B37.3 Candidiasis of vulva and vagina; N39.0 Urinary tract infection, site not specified; I10 Essential (primary) hypertension; J45.909 Unspecified asthma, uncomplicated
CPT/HCPCS: 81001; 81025; 82962; 87086; 87088; 87186; 87210; 87491; 87591; 99283

== ENCOUNTER 2018-10-25 00:18 | Emergency (ER) | payer BC ==
[2018-10-25 02:28] LABS: ABSOLUTE EOSINOPHILS # (AUTO) 0.1 10^3/uL (0.0-0.6); ABSOLUTE MONOCYTES (AUTO) 0.6 10^3/uL (0.1-1.4); ABSOLUTE NEUT (AUTO) 3.1 10^3/uL (1.7-8.2); BASOPHILS % (AUTO) 0.1 % (0-2); EOSINOPHILS % (AUTO) 1.8 % (0-6); HEMATOCRIT 34.1 % (36.0-47.0); HEMOGLOBIN 10.9 g/dL (12.0-15.5); LYMPHOCYTES % (AUTO) 43.3 % (13-45); MEAN CORPUSCULAR HEMOGLOBIN 25.4 pg (27.0-33.4); MEAN CORPUSCULAR VOLUME 79 fl (80-97); PLATELET COUNT 376 10^3/uL (150-450); RED CELL DISTRIBUTION WIDTH 16.8 % (11.5-14.0); SEGMENTED NEUTROPHILS % (AUTO) 45.8 % (42-78); TOTAL CELLS COUNTED % (AUTO) 100 %; WHITE BLOOD COUNT 6.8 10^3/uL (4.0-10.5)
[2018-10-25 02:46] LABS: ALANINE AMINOTRANSFERASE 13 U/L (9-52); ALBUMIN 4.2 g/dL (3.5-5.0); ALKALINE PHOSPHATASE 63 U/L (38-126); ANION GAP 7 (5-19); ASPARTATE AMINO TRANSFERASE 23 U/L (14-36); BILIRUBIN,DIRECT 0.1 mg/dL (0.0-0.4); BILIRUBIN,TOTAL 0.2 mg/dL (0.2-1.3); BLOOD UREA NITROGEN 11 mg/dL (7-20); CALCIUM 9.2 mg/dL (8.4-10.2); CARBON DIOXIDE 26 mmol/L (22-30); CHLORIDE 110 mmol/L (98-107); GLUCOSE 85 mg/dL (75-110); LIPASE 119.7 U/L (23-300); POTASSIUM 4.1 mmol/L (3.6-5.0); SODIUM 142.8 mmol/L (137-145); TOTAL PROTEIN 7.6 g/dL (6.3-8.2)
[2018-10-25 03:13] LABS: APPEARANCE,URINE CLEAR; BILIRUBIN,URINE NEGATIVE (NEGATIVE); COLOR,URINE YELLOW; GLUCOSE, URINE NEGATIVE (NEGATIVE); KETONES,URINE NEGATIVE (NEGATIVE); LEUKOCYTE ESTERASE,URINE NEGATIVE (NEGATIVE); NITRITE,URINE NEGATIVE (NEGATIVE); PROTEIN,URINE NEGATIVE (NEGATIVE); UROBILINOGEN,URINE NEGATIVE mg/dL (<2.0)
[2018-10-25] MEDS ORDERED: NORMAL SALINE 1000 ML 1,000 ML IV ONE (03:17)
[2018-10-25] MEDS ORDERED: ONDANSETRON HCL INJ/PF 4 MG/2 ML SDV IV ONE (03:17)
--- NOTE | 2018-10-25 03:56 | RADIOLOGY REPORT (SQ) ---
EXAM DESCRIPTION: XR ABDOMEN SUPINE AND ERECT WITH CHEST (ABD ACUTE SERIES) COMPLETED DATE/TME: 10/25/2018 03:17 CLINICAL HISTORY: 23 years, Female, cough abd pain COMPARISON: None. FINDINGS: Ill-defined patchy opacity in the right lung base. The lungs are otherwise clear. There are no pleural abnormalities. The cardiac silhouette and pulmonary vessels are normal. Nonobstructive bowel gas pattern. No abnormal calcifications. No acute osseous abnormality. IMPRESSION: Right basilar opacity may represent atelectasis versus developing pneumonia. Nonobstructive bowel gas pattern.
[2018-10-25] MEDS ORDERED: CEFTRIAXONE 1 GM/D5W RTU 1 GM/50 ML RTUPB IV ONE (04:48)
[2018-10-25] MEDS ORDERED: AZITHROMYCIN 250 MG TABLET PO ONE (04:48)
--- NOTE | 2018-10-25 04:54 | ER Document Report ---
ED General - General Chief Complaint: Abdominal Pain Stated Complaint: ABDOMINAL PAIN Time Seen by Provider: 10/25/18 01:47 TRAVEL OUTSIDE OF THE [place] IN LAST 30 DAYS: No - HPI Patient complains to provider of: Abdominal pain cough feeling unwell Notes: Patient coming in for the above-stated symptoms. Patient states cough abdominal pain ongoing for greater than the last 24 hours. Patient states at this time she is not on any chronic medication however has had tremors in the past and was placed on metoprolol. Patient states she has been without her metoprolol or primary care coverage for the last 6 months. Patient states nonproductive sputum with her cough denies smoking denies any recent travel denies any recent antibiotics. Patient states otherwise is feeling unwell. Patient states she did not receive a flu vaccine this year. Patient also complains of diffuse abdominal pain. Patient states no diarrhea no nausea no vomiting. Patient denies any trauma. Patient denies any sick contacts A brief review of the patient's past medical records available in [employer] was performed - Related Data Allergies/Adverse Reactions: peaches Allergy (Uncoded 09/08/18 15:33) Past Medical History - Social History Smoking Status: Never Smoker Frequency of alcohol use: None Drug Abuse: None Family History: Reviewed & Not Pertinent Patient has suicidal ideation: No Patient has homicidal ideation: No - Past Medical History Cardiac Medical History: Reports: Hx Hypertension Pulmonary Medical History: Reports: Hx Asthma, Hx Bronchitis Renal/ Medical History: Denies: Hx Peritoneal Dialysis Psychiatric Medical History: Reports: Hx Bipolar Disorder, Hx Depression, Hx Schizophrenia - Immunizations Immunizations up to date: Yes Hx Diphtheria, Pertussis, Tetanus Vaccination: No Review of Systems - Review of Systems Constitutional: No symptoms reported EENT: No symptoms reported Cardiovascular: No symptoms reported Respiratory: Cough Gastrointestinal: Abdominal pain Genitourinary: No symptoms reported Female Genitourinary: No symptoms reported Musculoskeletal: No symptoms reported Skin: No symptoms reported Hematologic/Lymphatic: No symptoms reported Neurological/Psychological: No symptoms reported -: Yes All other systems reviewed and negative Physical Exam - Vital signs Vitals: Temp Pulse Resp BP Pulse Ox 98.4 F 88 16 141/84 H 100 10/25/18 00:25 10/25/18 00:25 10/25/18 00:25 10/25/18 00:25 10/25/18 00:25 Interpretation: Normal - General General appearance: Appears well, Alert - HEENT Head: Normocephalic, Atraumatic Eyes: Normal Pupils: PERRL - Respiratory Respiratory status: No respiratory distress Chest status: Nontender Breath sounds: Normal Chest palpation: Normal - Cardiovascular Rhythm: Regular Heart sounds: Normal auscultation Murmur: No - Abdominal Inspection: Normal Distension: No distension Bowel sounds: Normal Tenderness: Nontender Organomegaly: No organomegaly - Back Back: Normal, Nontender - Extremities General upper extremity: Normal inspection, Nontender, Normal color, Normal ROM, Normal temperature General lower extremity: Normal inspection, Nontender, Normal color, Normal ROM, Normal temperature, Normal weight bearing. No: Ashley's sign - Neurological Neuro grossly intact: Yes Cognition: Normal Orientation: AAOx4 Alb[place] Coma Scale Eye Opening: Spontaneous [place] Coma Scale Verbal: Oriented [place] Coma Scale Motor: Obeys Commands Albino Coma Scale Total: 15 Speech: Normal Motor strength normal: LUE, RUE, LLE, RLE Sensory: Normal - Psychological Associated symptoms: Normal affect, Normal mood - Skin Skin Temperature: Warm Skin Moisture: Dry Skin Color: Normal Course - Re-evaluation Re-evalutation: 10/25/18 05:25 Chest x-ray concerning for possible developing pneumonia. Because of the patient's history of cough we will go ahead and start the patient on antibiotics. Otherwise laboratory studies not revealing critical pathology patient feeling better after IV fluids we will start the patient back on her metoprolol as that her blood pressures are slightly elevated here. Patient is encouraged follow-up with a [facility] or her primary care physician. - Vital Signs Vital signs: Temp Pulse Resp BP Pulse Ox 98.4 F 88 16 141/84 H 100 10/25/18 00:25 10/25/18 00:25 10/25/18 00:25 10/25/18 00:25 10/25/18 00:25 - Laboratory Result Diagrams: 10/25/18 02:15 10/25/18 02:15 Laboratory results interpreted by me: 10/25/18 10/25/18 10/25/18 02:15 02:15 02:55 Hgb 10.9 L Hct 34.1 L MCV 79 L MCH 25.4 L RDW 16.8 H Chloride 110 H Urine Blood MODERATE H Discharge - Discharge Clinical Impression: Pneumonia Qualifiers: Pneumonia type: due to unspecified organism Laterality: unspecified laterality Lung location: unspecified part of lung Qualified Code(s): J18.9 - Pneumonia, unspecified organism Condition: Good Instructions: Pneumonia ([facility]) Prescriptions: Azithromycin [Zithromax] 250 mg PO DAILY #4 tablet Metoprolol Tartrate [Lopressor 25 mg Tablet] 25 mg PO DAILY #30 tab Forms: Return to Work
[2018-10-25 05:37] VITALS: BP 121/81
== END 2018-10-25 05:38 | disposition home or self-care (01) ==
LOC: ER 00:18
DX: J18.9 Pneumonia, unspecified organism (principal); R10.9 Unspecified abdominal pain; I10 Essential (primary) hypertension
CPT/HCPCS: 99284; 36415; 83690; 85025; 81025; 80053; 81001; 74022; J2405; J7030; J0696

== ENCOUNTER 2019-01-06 23:26 | Emergency (ER) | payer BC ==
--- NOTE | 2019-01-06 23:44 | EKG REPORT ---
SEVERITY:- NORMAL ECG - SINUS RHYTHM : Confirmed by: Lilia Wilks MD 06-Jan-2019 23:44:20
[2019-01-06] MEDS ORDERED: ASPIRIN 81 MG TABLET, CHEWABLE PO ONE (23:59)
--- NOTE | 2019-01-07 00:07 | ER Document Report ---
ED Medical Screen (RME) - General Chief Complaint: Chest Pain Stated Complaint: HEART RACING,CHEST PAIN Time Seen by Provider: 01/06/19 23:58 Mode of Arrival: Ambulatory Information source: Patient Notes: Patient is a 23-year-old female comes emergency room complaining of her heart racing with chest pain. Patient states she has a history of anxiety and was placed on metoprolol by for this purpose. She was told that when her heart starts to race if 1 pill does not handle it she may increase it 2. Patient states for the past week she has been taking 2 tablets once in the morn ing and is not stopped her heart racing. She states that the pain is anterior chest pain that does not radiate to the back but does make her excessively short of breath. Patient denies smoking and denies any other medical problems with the exception of her anxiety levels. She does states she is under extreme amounts of stress of the current job hours back and she cannot afford to pay her bills. 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 Patient states she is not sexually active and her last period was in September. She also states that she has a family history of heart problems her father has a history of congestive heart failure mother has history of heart murmurs TRAVEL OUTSIDE OF THE [place] IN LAST 30 DAYS: No - Related Data Allergies/Adverse Reactions: peaches Allergy (Uncoded 01/06/19 23:43) Past Medical History - General Information source: Patient - Social History Cigarette use (# per day): No Chew tobacco use (# tins/day): No Frequency of alcohol use: None Drug Abuse: None Lives with: Family Family history: Reviewed & Not Pertinent - Past Medical History Cardiac Medical History: Reports: Hx Hypertension Pulmonary Medical History: Reports: Hx Asthma, Hx Bronchitis Renal/ Medical History: Denies: Hx Peritoneal Dialysis Psychiatric Medical History: Reports: Hx Bipolar Disorder, Hx Depression, Hx Schizophrenia - Immunizations Immunizations up to date: Yes Hx Diphtheria, Pertussis, Tetanus Vaccination: No Review of Systems - Review of Systems Constitutional: No symptoms reported EENT: No symptoms reported Cardiovascular: See HPI, Chest pain, Palpitations, Heart racing Respiratory: See HPI, Short of breath Gastrointestinal: No symptoms reported Genitourinary: No symptoms reported Female Genitourinary: No symptoms reported Musculoskeletal: No symptoms reported Skin: No symptoms reported Hematologic/Lymphatic: No symptoms reported Neurological/Psychological: No symptoms reported -: Yes All other systems reviewed and negative Physical Exam - Vital signs Vitals: Temp Pulse Resp BP Pulse Ox 97.9 F 116 H 28 H 136/94 H 99 01/06/19 23:33 01/06/19 23:33 01/06/19 23:33 01/06/19 23:33 01/06/19 23:33 Interpretation: Hypertensive, Tachycardic - Notes Notes: PHYSICAL EXAMINATION: GENERAL: Patient is well-nourished well-developed morbidly obese female 23 years old who is in no apparent distress on physical exam this evening but she does appear to be uncomfortable she is excessively teary. HEAD: Atraumatic, normocephalic. LUNGS: Mostly to base lung regalado show she has bilateral breath sounds breath sounds are decreased throughout she has no notable inspiratory or expiratory wheezing or rhonchi noted on physical exam this evening. HEART: Tachycardic rate and rhythm without murmurs Musculoskeletal: Normal range of motion, no pitting or edema. No cyanosis. NEUROLOGICAL: Normal speech, normal gait. Normal sensory, motor exams PSYCH: Normal mood, normal affect. SKIN: Warm, Dry, normal turgor, no rashes or lesions noted. Course - Re-evaluation Re-evalutation: 01/07/19 00:07 I have greeted and performed a rapid initial assessment of this patient. A comprehensive ED assessment and evaluation of the patient, analysis of test results and completion of the medical decision making process will be conducted by additional ED providers. Dictation of this chart was performed using voice recognition software; therefore, there may be some unintended grammatical errors. - Vital Signs Vital signs: Temp Pulse Resp BP Pulse Ox 97.9 F 116 H 28 H 136/94 H 99 01/06/19 23:33 01/06/19 23:33 01/06/19 23:33 01/06/19 23:33 01/06/19 23:33
--- NOTE | 2019-01-07 00:24 | ER Document Report ---
ED General - General Chief Complaint: Chest Pain Stated Complaint: HEART RACING,CHEST PAIN Time Seen by Provider: 01/06/19 23:58 Primary Care Provider: SHANNON GROVE DO [Primary Care Provider] - 01/09/19 Mode of Arrival: Ambulatory Notes: Patient is very pleasant 23-year-old female presents with complaint of feeling very anxious and having a lot of stress recently. Patient says whenever she gets anxious and stressed her heart starts racing she will sometimes get chest pain or shortness of breath. She denies anything making this worse. She says she was sitting still or walking around and she will have the symptoms. Symptoms have been ongoing since . Patient says that she has had these episodes many times in the past. She states she has had CT of her chest looking for PE and they were negative. She denies any new leg pain or leg swelling. She denies being on any other medication of the metoprolol which was prescribed by her doctor to take when she felt like her heart was racing. She denies any history of coronary disease. No recent fevers or infections. She says she is under more stress recently because she cannot afford to pay her bills. TRAVEL OUTSIDE OF THE [place] IN LAST 30 DAYS: No - Related Data Allergies/Adverse Reactions: peaches Allergy (Uncoded 01/06/19 23:43) Past Medical History - General Information source: Patient - Social History Smoking Status: Never Smoker Cigarette use (# per day): No Chew tobacco use (# tins/day): No Frequency of alcohol use: None Drug Abuse: None Lives with: Family Family History: Reviewed & Not Pertinent Patient has suicidal ideation: No Patient has homicidal ideation: No - Past Medical History Cardiac Medical History: Reports: Hx Hypertension Pulmonary Medical History: Reports: Hx Asthma, Hx Bronchitis Renal/ Medical History: Denies: Hx Peritoneal Dialysis Psychiatric Medical History: Reports: Hx Bipolar Disorder, Hx Depression, Hx Schizophrenia - Immunizations Immunizations up to date: Yes Hx Diphtheria, Pertussis, Tetanus Vaccination: No Review of Systems - Review of Systems Notes: My Normal Review Basic REVIEW OF SYSTEMS: CONSTITUTIONAL : Denies fever, chills, or sweats. Denies recent illness. EENT: Denies eye, ear, throat, or mouth pain or symptoms. Denies nasal or sinus congestion. CARDIOVASCULAR: Chest tightness RESPIRATORY: Denies cough, cold, or chest congestion. Denies wheezing. GASTROINTESTINAL: Denies abdominal pain. Denies nausea, vomiting, or diarrhea. MUSCULOSKELETAL: Denies neck or back pain or joint pain or swelling. SKIN: Denies rash or skin lesions. NEUROLOGICAL: Denies altered mental status or loss of consciousness. Denies h eadache. Denies weakness or paralysis or loss of use of either side. Denies problems with gait or speech. Denies sensory or motor loss. PSYCHIATRIC: Anxiety and stress ALL OTHER SYSTEMS REVIEWED AND NEGATIVE. Physical Exam - Vital signs Vitals: Temp Pulse Resp BP Pulse Ox 97.9 F 116 H 28 H 136/94 H 99 01/06/19 23:33 01/06/19 23:33 01/06/19 23:33 01/06/19 23:33 01/06/19 23:33 - Notes Notes: General Appearance: Well nourished, alert, cooperative, no acute distress, no obvious discomfort. Anxious appearing. Vitals: reviewed, See vital signs table. Head: no swelling or tenderness to the head Eyes: PERRL, EOMI, Conjuctiva clear Mouth: No decreasd moisture Lungs: No wheezing, No rales, No rhonci, No accessory muscle use, good air exchange bilaterally. Heart: Normal rate, Regular rythm, No murmur, no rub Abdomen: Normal BS, soft, No rigidity, No abdominal tenderness, No guarding, no rebound, no abdominal masses, no organomegaly Extremities: strength 5/5 in all extremities, good pulses in all extremities, no swelling or tenderness in the extremities, no edema. Skin: warm, dry, appropriate color, no rash Neuro: speech clear, oriented x 3, normal affect, responds appropriately to questions. Course - Re-evaluation Re-evalutation: 01/07/19 03:25 Patient is feeling much improved. Heart rate is improved. Ativan seemed to help her a lot. I will place her on Vistaril. She supposed to have an appointment with a counselor however she has not heard back from the counselor yet. She will talk to her primary care doctor about the referral as she has not heard back from counseling as of yet. I encouraged her to have a low threshold return to ER if she has recurrent chest pain, difficulty breathing, or she feels unwell. I do not suspect PE as she has had the symptoms recurrently for a long period time and has even had CTs of her chest in the past to evaluate for PE and these have been negative. The patient has received medication for anxiety her heart rate is normal, she is not tachypnea, her oxygenation is normal. Dictation of this chart was performed using voice recognition software; therefore, there may be some unintended grammatical errors. - Vital Signs Vital signs: Temp Pulse Resp BP Pulse Ox 97.9 F 116 H 20 108/79 96 01/06/19 23:33 01/06/19 23:33 01/07/19 03:00 01/07/19 01:01 01/07/19 03:00 - Laboratory Result Diagrams: 01/07/19 00:12 01/07/19 00:12 Laboratory results interpreted by me: 01/07/19 01/07/19 01/07/19 00:12 00:12 01:45 MCH 25.3 L MCHC 31.7 L RDW 17.4 H Chloride 108 H Urine Ketones TRACE H Ur Leukocyte Esterase LARGE H - EKG Interpretation by Me Additional EKG results interpreted by me: 01/07/19 00:24 EKG is reviewed and interpreted by me. EKG shows sinus rhythm with a rate of [address] segment elevation or depression. No ischemic T wave inversions. IL interval, QRS duration, QT intervals are within normal range. No old EKG available for comparison. Discharge - Discharge Clinical Impression: Palpitations, Anxiety Condition: Good Disposition: HOME, SELF-CARE Additional Instructions: Please follow up with your primary care physician about your referral to you counselor. I have prescribed you medicine called Vistaril. This medication will make you a bit sleepy but helps with stress. Only take it as needed. Please return to ER if you have severe chest pain, shortness of breath, or feel that you are worsening in any way. Prescriptions: Hydroxyzine Pamoate [Vistaril 25 mg Capsule] 25 mg PO DAILY #15 capsule Forms: Return to Work Referrals: SHANNON GROVE DO [Primary Care Provider] - 01/09/19
[2019-01-07 00:30] LABS: ABSOLUTE BASOPHILS # (AUTO) 0.1 10^3/uL (0.0-0.2); ABSOLUTE EOSINOPHILS # (AUTO) 0.1 10^3/uL (0.0-0.6); ABSOLUTE LYMPHOCYTES (AUTO) 2.3 10^3/uL (0.5-4.7); ABSOLUTE MONOCYTES (AUTO) 0.4 10^3/uL (0.1-1.4); ABSOLUTE NEUT (AUTO) 2.4 10^3/uL (1.7-8.2); BASOPHILS % (AUTO) 1.1 % (0-2); EOSINOPHILS % (AUTO) 1.3 % (0-6); HEMATOCRIT 40.3 % (36.0-47.0); HEMOGLOBIN 12.8 g/dL (12.0-15.5); LYMPHOCYTES % (AUTO) 44.5 % (13-45); MEAN CORPUSCULAR HEMOGLOBIN 25.3 pg (27.0-33.4); MEAN CORPUSCULAR HGB CONC 31.7 g/dL (32.0-36.0); MEAN CORPUSCULAR VOLUME 80 fl (80-97); MONOCYTES % (AUTO) 7.9 % (3-13); PLATELET COUNT 327 10^3/uL (150-450); RED BLOOD COUNT 5.05 10^6/uL (3.72-5.28); RED CELL DISTRIBUTION WIDTH 17.4 % (11.5-14.0); SEGMENTED NEUTROPHILS % (AUTO) 45.2 % (42-78); TOTAL CELLS COUNTED % (AUTO) 100 %; WHITE BLOOD COUNT 5.2 10^3/uL (4.0-10.5)
[2019-01-07] MEDS ORDERED: LORAZEPAM 1 MG TABLET PO ONE (00:31)
[2019-01-07 00:48] LABS: ALANINE AMINOTRANSFERASE 10 U/L (9-52); ALBUMIN 4.2 g/dL (3.5-5.0); ALKALINE PHOSPHATASE 56 U/L (38-126); ANION GAP 10 (5-19); ASPARTATE AMINO TRANSFERASE 16 U/L (14-36); BILIRUBIN,DIRECT 0.2 mg/dL (0.0-0.4); BILIRUBIN,TOTAL 0.4 mg/dL (0.2-1.3); BLOOD UREA NITROGEN 16 mg/dL (7-20); CARBON DIOXIDE 23 mmol/L (22-30); CHLORIDE 108 mmol/L (98-107); CREATINE KINASE 50 U/L (30-135); GLUCOSE 93 mg/dL (75-110); POTASSIUM 4.4 mmol/L (3.6-5.0); SODIUM 140.7 mmol/L (137-145); TOTAL PROTEIN 7.6 g/dL (6.3-8.2)
[2019-01-07] MEDS ORDERED: ONDANSETRON 4 MG TAB.RAPDIS ONE (00:48)
[2019-01-07 01:09] LABS: CREATINE KINASE MB < 0.22 ng/mL (<4.55); TROPONIN I < 0.012 ng/mL
--- NOTE | 2019-01-07 01:16 | RADIOLOGY REPORT (SQ) ---
EXAM DESCRIPTION: XR CHEST 1 VIEW COMPLETED DATE/TME: 01/06/2019 23:59 CLINICAL HISTORY: 23 years Female, cp COMPARISON: 10/25/18, 05/23/18 NUMBER OF VIEWS/TECHNIQUE: 1/AP FINDINGS: Moderate lung volume, clear parenchyma, normal cardiac silhouette, and intact bony thorax. IMPRESSION: No acute cardiopulmonary findings.
[2019-01-07 02:21] LABS: APPEARANCE,URINE CLOUDY; BILIRUBIN,URINE NEGATIVE (NEGATIVE); COLOR,URINE YELLOW; GLUCOSE, URINE NEGATIVE (NEGATIVE); KETONES,URINE TRACE mg/dL (NEGATIVE); LEUKOCYTE ESTERASE,URINE LARGE (NEGATIVE); NITRITE,URINE NEGATIVE (NEGATIVE); PROTEIN,URINE NEGATIVE (NEGATIVE); URINE SPECIFIC GRAVITY 1.033; UROBILINOGEN,URINE NEGATIVE mg/dL (<2.0)
[2019-01-07 03:16] LABS: URINE AMPHETAMINES SCREEN NEGATIVE; URINE BARBITURATES SCREEN NEGATIVE; URINE BENZODIAZEPINES SCREEN NEGATIVE; URINE COCAINE SCREEN NEGATIVE; URINE MARIJUANA (THC) SCREEN NEGATIVE; URINE METHADONE SCREEN NEGATIVE; URINE PHENCYCLIDINE SCREEN NEGATIVE
[2019-01-07] MEDS ORDERED: HYDROXYZINE PAMOATE 25 MG CAPSULE (4 CAP/ER DISP) PO PRN (03:24)
[2019-01-07 03:42] VITALS: BP 115/73
== END 2019-01-07 03:45 | disposition home or self-care (01) ==
LOC: ER 23:26
DX: F41.9 Anxiety disorder, unspecified (principal); R00.2 Palpitations; R07.89 Other chest pain; J45.909 Unspecified asthma, uncomplicated; I10 Essential (primary) hypertension; Z59.9 Problem related to housing and economic circumstances, unspecified; Z91.018 Allergy to other foods
CPT/HCPCS: 93005; 99285; 36415; 82553; 82550; 84443; 85025; 81025; 80053; 81001; 84484; 80307; 85379; 71045; 93010; S0119; J3490

== ENCOUNTER 2019-04-04 21:40 | Emergency (ER) | payer BC ==
[2019-04-04 22:00] VITALS: BP 135/79
== END 2019-04-05 00:42 | disposition home or self-care (01) ==
LOC: ER 21:40
DX: Z53.21 Procedure and treatment not carried out due to patient leaving prior to being seen by health care provider (principal); J02.9 Acute pharyngitis, unspecified

== ENCOUNTER 2019-04-05 10:06 | Emergency (ER) | payer SELFPAY ==
--- NOTE | 2019-04-05 10:44 | ER Document Report ---
HPI - HPI Patient complains to provider of: sore throat Time Seen by Provider: 04/05/19 10:36 Onset: Other - 2 days Severity: Mild Pain Level: 2 Context: 24-year-old female presents emergency department with complaints of sore throat for the past few days. Reports fever of 101.7 last night. No fever this morning. Patient last took Tylenol with midnight last night. Denies vomiting diarrhea. Denies exposure to strep. Patient reports she is eating drinking without problems. Associated Symptoms: Fever Exacerbated by: Food Relieved by: Denies Similar symptoms previously: Yes Recently seen / treated by doctor: No - CONSTITUTIONAL Constitutional: REPORTS: Fever - 04/04 - EENT EENT: REPORTS: Sore Throat - NEURO Neurology: REPORTS: Headache - REPRODUCTIVE Reproductive: DENIES: : Past Medical History - General Information source: Patient Last Menstrual Period: january- denies , reports irregular menses - Social History Smoking Status: Never Smoker Chew tobacco use (# tins/day): No Drug Abuse: None Occupation: [employer] Lives with: Family Family History: Reviewed & Not Pertinent Patient has suicidal ideation: No Patient has homicidal ideation: No - Past Medical History Cardiac Medical History: Reports: Hx Hypertension Pulmonary Medical History: Reports: Hx Asthma, Hx Bronchitis Renal/ Medical History: Denies: Hx Peritoneal Dialysis Psychiatric Medical History: Reports: Hx Bipolar Disorder, Hx Depression, Hx Schizophrenia Surgical Hx: Negative - Immunizations Immunizations up to date: Yes Hx Diphtheria, Pertussis, Tetanus Vaccination: No Vertical Provider Document - CONSTITUTIONAL Agree With Documented VS: Yes Exam Limitations: No Limitations General Appearance: WD/WN, No Apparent Distress - INFECTION CONTROL TRAVEL OUTSIDE OF THE [place] IN LAST 30 DAYS: No - HEENT HEENT: Atraumatic, Normocephalic. negative: Conjuctival Injection, Pharyngeal Exudate, Pharyngeal Erythema - tonsillar hypertrophy, no erythema, no exudate, good airway clear voice - NECK Neck: Normal Inspection, Supple. negative: Lymphadenopathy-Left, Lymphadenopathy-Right - RESPIRATORY Respiratory: Breath Sounds Normal, No Respiratory Distress - CARDIOVASCULAR Cardiovascular: Regular Rate, Regular Rhythm - MUSCULOSKELETAL/EXTREMETIES Musculoskeletal/Extremeties: KARMEN VERA - NEURO Level of Consciousness: Awake, Alert, Appropriate - DERM Integumentary: Warm, Dry, No Rash Course - Re-evaluation Re-evalutation: 04/05/19 10:42 This 24-year-old female reports 2 days of sore throat. Fever of 101.7 last night. No fever this morning. Last took Tylenol at midnight last night. Reports she has a history of strep. She is speaking in a clear voice good airway. 04/05/19 11:15 Strep test is negative. Patient was instructed on throat culture pending. Patient instructed to follow-up with primary care provider within 1 week for recheck she verbalized understanding to all instructions Dictation of this chart was performed using voice recognition software; therefore, there may be some unintended grammatical errors. - Vital Signs Vital signs: Temp Pulse Resp BP Pulse Ox 98.2 F 89 18 127/75 H 99 04/05/19 10:09 04/05/19 10:09 04/05/19 10:09 04/05/19 10:04/05/19 10:09 Discharge - Discharge Clinical Impression: Sore throat Condition: Stable Disposition: HOME, SELF-CARE Instructions: Sore Throat ([facility]) Additional Instructions: *You have been evaluated for a sore throat, *Your strep test was negative. A Throat culture is pending. This usually takes 2 to 3 days. If throat culture comes back positive and you need antibiotics we will contact you. *Warm salt water gargles and throat lozenges for comfort * Take motrin for pain as indicated *Follow-up with a primary care provider within one week for recheck *Return to ED for worsening condition change, needs Forms: Elevated Blood Pressure, Return to Work
[2019-04-05 11:27] VITALS: BP 120/83
== END 2019-04-05 11:24 | disposition home or self-care (01) ==
LOC: ER 10:06
DX: J02.9 Acute pharyngitis, unspecified (principal); R51 Headache; I10 Essential (primary) hypertension; J45.909 Unspecified asthma, uncomplicated
CPT/HCPCS: 87070; 87880; 99283

== ENCOUNTER 2019-07-04 10:31 | Emergency (ER) | payer SELFPAY ==
[2019-07-04 10:47] VITALS: BP 127/84
[2019-07-04] MEDS ORDERED: KETOROLAC TROMETHAMINE 60 MG/2 ML SDV IM ONE (10:49)
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
--- NOTE | 2019-07-04 12:28 | RADIOLOGY REPORT (SQ) ---
EXAM DESCRIPTION: SHOULDER RIGHT 2 OR MORE VIEWS COMPLETED DATE/TIME: 07/04/2019 12:20 pm REASON FOR STUDY: pain w/ movement, felt a "pop" COMPARISON: None. NUMBER OF VIEWS: Three views. TECHNIQUE: Internal rotation, external rotation, and Y view images acquired of the right shoulder. LIMITATIONS: None. FINDINGS: MINERALIZATION: Normal. BONES: No acute fracture. No worrisome bone lesions. JOINTS: No dislocation. VISUALIZED LUNGS AND RIBS: No pneumothorax. No rib fracture. SOFT TISSUES: No radiopaque foreign body. OTHER: No other significant finding. IMPRESSION: NEGATIVE STUDY OF THE RIGHT SHOULDER. NO RADIOGRAPHIC EVIDENCE OF ACUTE INJURY. TECHNICAL DOCUMENTATION: JOB ID: [id number]- All Rights Reserved Reading location - IP/workstation name: [email or web address]
== END 2019-07-04 13:13 | disposition home or self-care (01) ==
LOC: ER 10:31
DX: M25.511 Pain in right shoulder (principal); I10 Essential (primary) hypertension; J45.909 Unspecified asthma, uncomplicated
CPT/HCPCS: 99283; 96372; 73030; J1885

== ENCOUNTER 2019-10-02 10:14 | Emergency (ER) | payer BC ==
--- NOTE | 2019-10-02 12:00 | ER Document Report ---
HPI - HPI Time Seen by Provider: 10/02/19 11:55 Pain Level: 3 Context: CHIEF COMPLAINT: Runny nose and cough for 5 days HPI: 24-year-old female presenting to the emergency department complaining of runny nose and cough for the last 5 days, cough is progressively worse and she feels like it is moist in nature. No chest pain or shortness of breath. No fever. Patient has been using [id number] medications for the nasal congestion. States she had slight nasal bleeding today which has since resolved. ROS: See HPI - all other systems were reviewed and are otherwise negative Constitutional: no fever Eyes: no drainage, no blurred vision ENT: Positive runny nose, no sore throat Cardiovascular: no chest pain Resp: no SOB, positive cough GI: no vomiting, no diarrhea, no abdominal pain : no dysuria Integumentary: no rash Allergy: no hives Musculoskeletal: no extremity pain or swelling Neurological: no numbness/tingling, no weakness MEDICATIONS: I agree with the patient medications as charted by the RN. ALLERGIES: I agree with the allergies as charted by the RN. PAST MEDICAL HISTORY/PAST SURGICAL HISTORY: Reviewed and agree as charted by RN. SOCIAL HISTORY: Reviewed and agree as charted by RN. FAMILY HISTORY: No significant familial comorbid conditions directly related to patient complaint EXAM: Reviewed vital signs as charted by RN. CONSTITUTIONAL: Alert and oriented and responds appropriately to questions. Well-appearing; well-nourished, no acute distress HEAD: Normocephalic; atraumatic EYES: PERRL; Conjunctivae clear, sclerae non-icteric ENT: normal nose; clear rhinorrhea; moist mucous membranes; pharynx without lesions noted, no uvula edema or deviation, no tonsillar hypertrophy, phonation normal NECK: Supple without meningismus; non-tender; no cervical lymphadenopathy, no masses CARD: RRR; no murmurs, no clicks, no rubs, no gallops; symmetric distal pulses RESP: Normal chest excursion without splinting or tachypnea; breath sounds clear and equal bilaterally; no wheezes, no rhonchi, no rales, pulse oximetry 98% on room air not hypoxic ABD/GI: Normal bowel sounds; non-distended; soft, non-tender, no rebound, no guarding; no palpable organomegaly or masses. BACK: The back appears normal and is non-tender to palpation, there is no CVA tenderness EXT: Normal ROM in all joints; non-tender to palpation; no cyanosis, no effusions, no edema SKIN: Normal color for age and race; warm; dry; good turgor; no acute lesions noted NEURO: Moves all extremities equally; Motor and sensory function intact PSYCH: The patient's mood and manner are appropriate. Grooming and personal hygiene are appropriate. MDM: 24-year-old female presenting for upper respiratory symptoms for 5 days. Likely a viral etiology she is concerned about the cough becoming productive, will obtain chest x-ray to evaluate for infiltrate. She is not a smoker. - CONSTITUTIONAL Constitutional: DENIES: Fever, Chills - EENT EENT: DENIES: Sore Throat, Ear Pain, Eye problems - NEURO Neurology: DENIES: Headache, Weakness, Vision blurred, Dizzinesss / Vertigo - CARDIOVASCULAR Cardiovascular: DENIES: Chest pain - RESPIRATORY Respiratory: REPORTS: Trouble Breathing, Coughing - GASTROINTESTINAL Gastrointestinal: DENIES: Abdominal Pain, Black / Bloody Stools - URINARY Urinary: DENIES: Dysuria, Urgency, Frequency - REPRODUCTIVE LMP: Aug 26 Reproductive: DENIES: : - MUSCULOSKELETAL Musculoskeletal: DENIES: Extremity pain Past Medical History - Social History Smoking Status: Never Smoker Chew tobacco use (# tins/day): No Frequency of alcohol use: None Drug Abuse: None Family History: Reviewed & Not Pertinent Patient has suicidal ideation: No Patient has homicidal ideation: No - Past Medical History Cardiac Medical History: Reports: Hx Hypertension Pulmonary Medical History: Reports: Hx Asthma, Hx Bronchitis Renal/ Medical History: Denies: Hx Peritoneal Dialysis Psychiatric Medical History: Reports: Hx Bipolar Disorder, Hx Depression, Hx Schizophrenia - Immunizations Immunizations up to date: Yes Hx Diphtheria, Pertussis, Tetanus Vaccination: No Vertical Provider Document - INFECTION CONTROL TRAVEL OUTSIDE OF THE [place] IN LAST 30 DAYS: No Course - Re-evaluation Re-evalutation: 10/02/19 12:52 Chest x-ray on my review does not show evidence of infiltrate. Likely a viral etiology. Will discharge home with symptomatic treatment - Vital Signs Vital signs: Temp Pulse Resp BP Pulse Ox 98.7 F 70 19 126/70 H 100 10/02/19 11:43 10/02/19 11:43 10/02/19 11:43 10/02/19 11:43 10/02/19 11:43 Discharge - Discharge Clinical Impression: Upper respiratory infection, viral Condition: Stable Disposition: HOME, SELF-CARE Additional Instructions: Use the albuterol inhaler 2 puffs every 4 hours as needed for cough or shortness of breath. Use the nasal steroid to help dry up the sinuses. Chest x-ray did not show evidence of pneumonia today. Follow-up with a primary care provider for reevaluation of symptoms call for appointment Prescriptions: Fluticasone Propionate [Flonase Nasal [place] 50 Mcg/[place] 16 gm] 2 sprays NASL Q12 #1 inhaler Albuterol Sulfate [Proair HFA Inhalation Aerosol 8.5 gm MDI] 2 puff IH Q4H PRN #1 mdi PRN Reason: Referrals: KELSEA RODRIGUEZ MD [ACTIVE STAFF] - Follow up as needed
--- NOTE | 2019-10-02 13:04 | RADIOLOGY REPORT (SQ) ---
EXAM DESCRIPTION: CHEST 2 VIEWS COMPLETED DATE/TIME: 10/02/2019 12:55 pm REASON FOR STUDY: cough COMPARISON: AP view of the chest from 01/07/2019 EXAM PARAMETERS: NUMBER OF VIEWS: Two views. TECHNIQUE: An AP view of the chest was obtained.. RADIATION DOSE: NA LIMITATIONS: none FINDINGS: LUNGS AND PLEURA: Asymmetric opacities that project within the retrocardiac space on the A P view and over the thoracic spine on the lateral view. There is no sizable, pleural effusion or pne umothorax. MEDIASTINUM AND HILAR STRUCTURES: No mediastinal or hilar contour abnormality. HEART AND VASCULAR STRUCTURES: The cardiac silhouette and pulmonary vasculature are within normal holley its. BONES: No acute findings. HARDWARE: None in the chest. OTHER: No other finding. IMPRESSION: Asymmetric parenchymal opacities in the left lower lobe. Correlate with clinical findin gs to exclude an acute pneumonia. TECHNICAL DOCUMENTATION: JOB ID: [id number]- All Rights Reserved Reading location - IP/workstation name: [email or web address]
[2019-10-02 13:12] VITALS: BP 140/78
== END 2019-10-02 13:11 | disposition home or self-care (01) ==
LOC: ER 10:14
DX: J06.9 Acute upper respiratory infection, unspecified (principal); B97.89 Other viral agents as the cause of diseases classified elsewhere; R09.89 Other specified symptoms and signs involving the circulatory and respiratory systems; R05 Cough; R09.81 Nasal congestion; I10 Essential (primary) hypertension; J45.909 Unspecified asthma, uncomplicated
CPT/HCPCS: 71046; 99283

== ENCOUNTER 2019-10-29 05:08 | Emergency (ER) | payer BC ==
[2019-10-29] MEDS ORDERED: KETOROLAC TROMETHAMINE 60 MG/2 ML SDV IM ONE (08:37)
--- NOTE | 2019-10-29 08:38 | ER Document Report ---
HPI - HPI Time Seen by Provider: 10/29/19 08:15 Pain Level: 3 Notes: Patient is a 24-year-old female who presents complaining of right-sided back pain from her neck down to her lower back over the past couple days. Her pain does not radiate to her legs. She is able to eat and drink without difficulty. She is urinating normally and having normal bowel movements. No vaginal discharge, odor, or bleeding. Denies any history of IV drug abuse, diabetes, spinal abscess. Patient states that the pain is worse when she twists and bends. She has not had any recent injury. Patient states that it feels like spasming. Denies any headache, fever, neck pain, URI, sore throat, chest pain, palpitations, syncope, cough, shortness of breath, wheeze, dyspnea, abdominal pain, nausea/vomiting/diarrhea, urinary retention, dysuria, hematuria, loss of control of bowel or bladder, numbness/tingling, saddle anesthesia, muscle paralysis/weakness, or rash. - ROS Systems Reviewed and Negative: Yes All other systems reviewed and negative - REPRODUCTIVE LMP: 10/09/19 Reproductive: DENIES: : Past Medical History - Social History Smoking Status: Never Smoker Chew tobacco use (# tins/day): No Frequency of alcohol use: None Drug Abuse: None Family History: Reviewed & Not Pertinent Patient has suicidal ideation: No Patient has homicidal ideation: No - Past Medical History Cardiac Medical History: Reports: Hx Hypertension Pulmonary Medical History: Reports: Hx Asthma, Hx Bronchitis Renal/ Medical History: Denies: Hx Peritoneal Dialysis Psychiatric Medical History: Reports: Hx Bipolar Disorder, Hx Depression, Hx Schizophrenia - Immunizations Immunizations up to date: Yes Hx Diphtheria, Pertussis, Tetanus Vaccination: No Vertical Provider Document - CONSTITUTIONAL Agree With Documented VS: Yes Notes: PHYSICAL EXAMINATION: GENERAL: Well-appearing, well-nourished and in no acute distress. LUNGS: Breath sounds clear to auscultation bilaterally and equal. No wheezes rales or rhonchi. HEART: Regular rate and rhythm without murmurs, rubs, gallops. ABDOMEN: Soft, nontender, nondistended abdomen. No guarding, no rebound. Normal bowel sounds present. No CVA tenderness bilaterally. No pulsatile mass Musculoskeletal: LE's b/l: FROM to passive/active. Strength 5+/5. No deficits noted. No bony tenderness of extremities. Back: FROM to passive/active. Strength 5+/5. No vertebral point tenderness, stepoffs, or deformities. No other bony tenderness, erythema, swelling, or ecchymosis. SLR negative b/l. + reproducible, mild, tenderness to the Rt T/L- paraspinal mm b/l. Mild spasming. No SI jt tenderness. No foot drop Extremities: No cyanosis, clubbing, or edema b/l. Peripheral pulses 2+. Capillary refill less than 2 seconds. NEUROLOGICAL: Normal speech, normal gait. Normal sensory, motor exams. Reflexes 2+ b/l. PSYCH: Normal mood, normal affect. SKIN: Warm, Dry, normal turgor, no rashes or lesions noted. - INFECTION CONTROL TRAVEL OUTSIDE OF THE [place] IN LAST 30 DAYS: No Course - Re-evaluation Re-evalutation: 10/29/19 Patient is an afebrile, well-hydrated, 24-year-old female who presents to the ED with acute rt sided back pain, suspect spasming. Vitals are acceptable. PE is otherwise unremarkable for any focal neurological deficits. Patient was given Toradol. She has no significant tachycardia, tachypnea, or hypoxia. She is nontoxic-appearing and is tolerating p.o. without difficulties. There are no signs of infection. No other red flag symptoms noted. No other labs or imaging warranted at this time based on H&P. Low suspicion for any meningitis, fracture, expanding/ruptured AAA, cauda equina syndrome, epidural mass lesion/abscess, herniated disc causing severe spinal stenosis, or other systemic infection at this time. Patient is aware that this condition can change from initial presentation and that she needs monitor symptoms closely for any acute changes. I will send her home with a prescription for Robaxin and motrin. Conservative measures otherwise for symptoms. Recheck with your PCM in 3-5 days. Consider consult with orthopedic/physical therapy. Return to the ED with any worsening/concerning symptoms otherwise as reviewed discharge. Patient is in agreement. - Vital Signs Vital signs: Temp Pulse Resp BP Pulse Ox 98.4 F 86 16 111/64 100 10/29/19 07:40 10/29/19 07:40 10/29/19 07:40 10/29/19 07:40 10/29/19 07:40 Discharge - Discharge Clinical Impression: Right-sided back pain Qualifiers: Back pain location: back pain in unspecified location Chronicity: acute Qualified Code(s): M54.9 - Dorsalgia, unspecified Condition: Stable Disposition: HOME, SELF-CARE Instructions: Muscle Relaxers ([facility]) Additional Instructions: Rest, Ice Tylenol/ibuprofen as needed Light stretches daily Strength exercises as able Moist heat and massage may help F/u with your PCP in 3-5 days for a recheck Consider consult(s) with Orthopedics/physical therapy for ongoing/worsening symptoms Return to the ED with any worsening symptoms and/or development of fever, headache, chest pain, palpitations, syncope, shortness of breath, trouble breathing, abdominal pain, n/v/d, blood in stool/urine, loss of control of bowel/bladder, urinary retention, muscle weakness/paralysis, saddle anesthesia, numbness/tingling, or other worsening symptoms that are concerning to you. Prescriptions: Ibuprofen [Motrin 800 mg Tablet] 800 mg PO Q8H PRN #15 tab PRN Reason: Methocarbamol [Robaxin 750 mg Tablet] 750 mg PO TID PRN #10 tablet PRN Reason: Forms: Return to Work Referrals: [facility] [Provider Group] - Follow up as needed [facility] [Provider Group] - Follow up as needed
[2019-10-29 08:46] LABS: APPEARANCE,URINE CLEAR; BILIRUBIN,URINE NEGATIVE (NEGATIVE); COLOR,URINE YELLOW; GLUCOSE, URINE NEGATIVE (NEGATIVE); KETONES,URINE 20 mg/dL (NEGATIVE); LEUKOCYTE ESTERASE,URINE NEGATIVE (NEGATIVE); NITRITE,URINE NEGATIVE (NEGATIVE); PROTEIN,URINE 30 mg/dL (NEGATIVE); URINE SPECIFIC GRAVITY 1.016; UROBILINOGEN,URINE NEGATIVE mg/dL (<2.0)
[2019-10-29 09:16] VITALS: BP 109/65
== END 2019-10-29 09:19 | disposition home or self-care (01) ==
LOC: ER 05:08
DX: M54.5 Low back pain (principal); M54.2 Cervicalgia; I10 Essential (primary) hypertension; J45.909 Unspecified asthma, uncomplicated
CPT/HCPCS: 99283; 96372; 81001; J1885

== ENCOUNTER 2019-10-30 06:15 | Emergency (ER) | payer BC ==
--- NOTE | 2019-10-30 06:44 | ER Document Report ---
ED General - General Chief Complaint: Difficulty Swallowing Stated Complaint: SORE THROAT Time Seen by Provider: 10/30/19 06:29 Mode of Arrival: Ambulatory Information source: Patient TRAVEL OUTSIDE OF THE [place] IN LAST 30 DAYS: No - HPI Notes: Patient presents with sore throat. She states the pain started yesterday. It is slightly worse on the left than the right. This pain is a dull aching pain that becomes sharp when she swallows. It is worse with swallowing and better when she does not swallow. It is constant. It is moderate to severe. She states that she has had fever chills and sweats at home. Some right ear pain as well. Some mild rhinorrhea. No vomiting or diarrhea. - Related Data Allergies/Adverse Reactions: shellfish derived Allergy (Verified 10/30/19 06:21) peaches Allergy (Uncoded 10/29/19 05:44) Past Medical History - General Information source: Patient - Social History Smoking Status: Never Smoker Frequency of alcohol use: None Drug Abuse: None Family History: Reviewed & Not Pertinent Patient has suicidal ideation: No Patient has homicidal ideation: No - Past Medical History Cardiac Medical History: Reports: Hx Hypertension Pulmonary Medical History: Reports: Hx Asthma, Hx Bronchitis Renal/ Medical History: Denies: Hx Peritoneal Dialysis Psychiatric Medical History: Reports: Hx Bipolar Disorder, Hx Depression, Hx Sc hizophrenia - Immunizations Immunizations up to date: Yes Hx Diphtheria, Pertussis, Tetanus Vaccination: No Review of Systems - Review of Systems Constitutional: Chills, Fever, Recent illness Cardiovascular: denies: Chest pain, Palpitations Respiratory: denies: Cough, Short of breath Physical Exam - Vital signs Vitals: Temp Pulse Resp BP Pulse Ox 98.3 F 102 H 16 115/68 98 10/30/19 06:19 10/30/19 06:19 10/30/19 06:19 10/30/19 06:19 10/30/19 06:19 Interpretation: Tachycardic - General General appearance: Appears well, Alert - HEENT Head: Normocephalic, Atraumatic Eyes: Normal Pupils: PERRL Nasal: Clear rhinorrhea Mouth/Lips: Normal Mucous membranes: Moist Pharynx: Erythema, Exudate Neck: Normal - Respiratory Respiratory status: No respiratory distress Chest status: Nontender Breath sounds: Normal Chest palpation: Normal - Cardiovascular Rhythm: Regular, Tachycardia Heart sounds: Normal auscultation Murmur: No - Abdominal Inspection: Normal Distension: No distension Bowel sounds: Normal Tenderness: Nontender Organomegaly: No organomegaly - Back Back: Normal, Nontender - Extremities General upper extremity: Normal inspection, Nontender, Normal color, Normal ROM, Normal temperature General lower extremity: Normal inspection, Nontender, Normal color, Normal ROM, Normal temperature, Normal weight bearing. No: Ashley's sign - Neurological Neuro grossly intact: Yes Cognition: Normal Orientation: AAOx4 [place] Coma Scale Eye Opening: Spontaneous [place] Coma Scale Verbal: Oriented [place] Coma Scale Motor: Obeys Commands [place] Coma Scale Total: 15 Speech: Normal Motor strength normal: LUE, RUE, LLE, RLE Sensory: Normal - Psychological Associated symptoms: Normal affect, Normal mood - Skin Skin Temperature: Warm Skin Moisture: Dry Skin Color: Normal Course - Vital Signs Vital signs: Temp Pulse Resp BP Pulse Ox 98.3 F 102 H 16 115/68 98 10/30/19 06:19 10/30/19 06:19 10/30/19 06:19 10/30/19 06:19 10/30/19 06:19 Discharge - Discharge Clinical Impression: Exudative tonsillitis Condition: Stable Disposition: HOME, SELF-CARE Instructions: Amoxicillin ([facility]) Prescriptions: Amoxicillin 1 tab PO TID #30 tab Forms: Return to Work Referrals: [facility] [Provider Group] - Follow up in 3-5 days
[2019-10-30] MEDS ORDERED: DEXAMETHASONE SOD PHOS INJ 10 MG/1 ML VIAL IM ONE (06:45)
[2019-10-30 07:15] VITALS: BP 123/75
== END 2019-10-30 07:06 | disposition home or self-care (01) ==
LOC: ER 06:15
DX: J03.90 Acute tonsillitis, unspecified (principal); H92.01 Otalgia, right ear; R50.9 Fever, unspecified; J34.89 Other specified disorders of nose and nasal sinuses; R00.0 Tachycardia, unspecified; J45.909 Unspecified asthma, uncomplicated; I10 Essential (primary) hypertension; Z91.013 Allergy to seafood; Z91.018 Allergy to other foods
CPT/HCPCS: 99282; 96372; J1100